=== PATIENT | female | born 1960 | race Hispanic/Latino ===

== ENCOUNTER 2019-09-24 21:53 | Emergency (ER) | payer SELFPAY | END 2019-09-24 22:32 | disposition home or self-care (01) | LOC: BURERS 21:53 | DX: J30.1 Allergic rhinitis due to pollen (principal); I10 Essential (primary) hypertension; F41.9 Anxiety disorder, unspecified; Z79.899 Other long term (current) drug therapy | CPT/HCPCS: 99283 ==